=== PATIENT | male | born 1945 | race Caucasian/White ===

== ENCOUNTER 2018-04-11 19:16 | Inpatient (IN) | payer OTHER ==
[~2018-04-11] VITALS: Ht 182.9 cm; Wt 62.6 kg
--- NOTE | ~2018-04-11 | 2DMMODE ---
[facility] [address] [place] [address] 2 D/M-MODE ECHOCARDIOGRAM Name: MANJULA BRANDON Room #: 412-P [facility] IN ..#: [id number] Admission: 04/11/18 Attend Phys: Dante Renee, Discharge: Date of : 45 Date of Service: 04/12/18 1250 Report #: [id number] THIS REPORT FOR: //name// APPROVED REPORT Study performed: 04/12/2018 10:46:05 EXAM: Comprehensive 2D, Doppler, and color-flow Echocardiogram Patient Location: Echo lab Room #: [facility] Status: routine BSA: 1.82 HR: 87 bpm BP: 139/89 mmHg Rhythm: NSR Other Information Study Quality: Good Indications Pre-Op. 2D Dimensions RVDd: 36.77 mm LVEF(%): 56.70 (>50%) IVSd: 13.54 (7-11mm) LVOT Diam: 22.36 (18-24mm) LVDd: 42.29 mm PWd: 12.54 (7-11mm) Ascending Ao: 36.22 (22-36mm) LVDs: 29.85 (25-40mm) Aortic Root: 38.06 mm Arenas's LVEF: 56.70 % Volumes Left Atrial Volume (Systole) Single Plane 4CH: 36.45 mL Single Plane 2CH: 43.31 mL LA ESV Index: 24.00 mL/m2 Aortic Valve AoV Peak Ankit.: 1.12 m/s AO Peak Gr.: 5.02 mmHg LVOT Max P.32 mmHg LVOT Max V: 0.91 m/s YOSSI Vmax: 3.19 cm2 Mitral Valve E/A Ratio: 0.6 MV Decel. Time: 425.11 ms [facility] [place] [address] 2 D/M-MODE ECHOCARDIOGRAM Name: MANJULA BRANDON Room #: 412-P [facility] IN .R.#: [id number] Admission: 04/11/18 Attend Phys: Dante Renee, Discharge: Date of : 45 Date of Service: 04/12/18 1250 Report #: [id number] MV E Max Ankit.: 0.46 m/s MV A Ankit.: 0.73 m/s MV PHT: 123.28 ms IVRT: 107.27 ms Pulmonary Valve PV Peak Ankit.: 0.92 m/s PV Peak Gr.: 3.37 mmHg Pulmonary Vein P Vein S: 0.62 m/s P Vein D: 0.30 m/s P Vein S/D Ratio: 2.07 Tricuspid Valve TR Peak Ankit.: 2.56 m/s RAP Estimate: 5.00 mmHg TR Peak Gr.: 26.31 mmHg PA Pressure: 31.00 mmHg Left Ventricle The left ventricle is normal size. There is normal LV segmental wall motion. Mild concentric left ventricular hypertrophy. Left ventricular systolic function is normal. LVEF is 60-65%. Mild diastolic dysfunction is present (impaired relaxation pattern). Right Ventricle The right ventricle is normal size. The right ventricular systolic function is normal. Atria The left atrium size is normal. The right atrium size is normal. Aortic Valve The aortic valve is normal in structure. No aortic regurgitation is present. There is no aortic valvular stenosis. Mitral Valve Mitral valve leaflets are mildly thickened, probably mildly myxomatous. Mild mitral annular calcification. Mild mitral regurgitation. Tricuspid Valve The tricuspid valve is normal in structure. Mild to moderate tricuspid regurgitation. Estimated PAP is 30-35mmHg. [address] [address] 2 D/M-MODE ECHOCARDIOGRAM Name: ALEKSANDRMANJULA Room #: 412-P [facility] IN .R.#: [id number] Admission: 04/11/18 Attend Phys: Dante Renee, Discharge: Date of : 45 Date of Service: 04/12/18 1250 Report #: [id number] Pulmonic Valve The pulmonary valve is normal in structure. Mild pulmonic regurgitation. Great Vessels Aortic root is borderline dilated. The ascending aorta is normal in size. IVC is normal in size and collapses >50% with inspiration. Pericardium There is no pericardial effusion. <Conclusion> Left ventricular systolic function is normal. There is normal LV segmental wall motion. Mild concentric left ventricular hypertrophy. LVEF 60-65%. Mild diastolic dysfunction The aortic valve is normal in structure. No aortic regurgitation or stenosis Mitral valve leaflets are mildly thickened, probably mildly myxomatous. Mild mitral annular calcification. Mild mitral regurgitation Mild to moderate tricuspid regurgitation. Estimated pulmonary artery pressure of 30-35mmHg. There is no pericardial effusion. <ELECTRONICALLY SIGNED> By: Bobby Alejandre MD, FACC 04/12/18 1250 125 49 Bobby Alejandre MD, FACC /INF
--- NOTE | ~2018-04-11 | PATH ---
[facility] [address] [address] PATHOLOGY RPT PROCEDURE Name: MANJULA HEATH Room #: 412-P [facility] IN M.R.#: [id number] Admission: 04/11/18 Date of : 45 Discharge: Report #: [id number] Path Case #: [id number] [facility] Accession Number: [id number] . 01 Material submitted: . SIGMOID COLON . 01 Clinical history: . Sigmoid volvulus . 02 Diagnosis: Large intestine, sigmoid colon, laparoscopic colectomy: - Markedly congested bowel wall with reactive changes, clinical history of volvulus. - Negative for dysplasia or malignancy. - Margins of resection viable and unremarkable. - Three reactive lymph nodes. (IUV:db; 04/16/2018) LBQ/04/16/2018 . 02 Electronically signed: . Luna Oscar MD, Pathologist NPI- [id number] . 01 Gross description: . The specimen is received in formalin, labeled "Manjula Heath, sigmoid colon". Received is an unoriented segment of colon measuring 18.6 cm in length by 2.7 cm in diameter. One margin is stapled closed and the opposite margin is opened. The serosal surface is pale guido, smooth and glistening in appearance. The attached pericolic fat measures up to 3.1 cm in thickness. Opening the specimen reveals a pale guido mucosa with moderate mucosal folding. Dissection and palpation of the attached pericolic fat reveals three possible lymph nodes measuring 0.4 cm each in maximum dimensions. The specimen is submitted representatively as follows: . A1 stapled margin A2 opened margin A3-A4 field representatives director cross-sections of mucosa A5 intact possible lymph nodes. (CAA; 04/15/2018) QAC/QAC . 02 CPT . [id number] Performed at: [address] [address] PATHOLOGY RPT PROCEDURE Name: MANJULA HEATH Room #: 412-P [facility] IN [facility]#: [id number] Admission: 04/11/18 Date of : 45 Discharge: Report #: [id number] Path Case #: [id number] [address] [id number] MD Nick Ware MD Phone: [phone] Performed at: [address] [id number] MD Luna Oscar MD Phone: [phone]
--- NOTE | ~2018-04-11 | EKG ---
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1945 Requested By: Kade Spencer Order Number: [id number] MD: Bobby Alejandre Measurements Intervals [place] Rate: 77 P: 73 LA: 144 QRS: 55 QRSD: 96 T: 82 QT: 391 QTc: 443 Interpretive Statements Sinus rhythm Atrial premature complex Compared to ECG 08/28/1993 07:21:00 Atrial premature complex(es) now present Electronically Signed On 04-12-2018 16:28:19 CDT by Bobby Alejandre [email or web address] <ELECTRONICALLY SIGNED> By: Bobby Alejandre MD, [facility] 04/12/18 1628 Bobby Alejandre MD, [facility] /EPI
--- NOTE | ~2018-04-11 | O ---
[facility] [place] [address] [place] [address] OPERATIVE REPORT Name: MANJULA BRANDON Room #: 412-P [facility] IN M.R.#: [id number] Admission: 04/11/18 Attend Phys: Dante Renee MD Discharge: Date of : 45 Report #: [id number] THIS REPORT FOR: //name// CC: NANCY Renee DATE OF SERVICE: 04/13/2018 PREOPERATIVE DIAGNOSIS: Sigmoid volvulus, status post decompression. POSTOPERATIVE DIAGNOSES: Sigmoid volvulus, status post decompression. OPERATIVE PROCEDURE: Laparoscopic sigmoid colectomy. SURGEON: Jeri Scruggs MD SLEEP LAB TECHNOLOGIST: Gentry Lazaro DO ANESTHESIA: General endotracheal anesthesia. ESTIMATED BLOOD LOSS: Minimal (less than 10 mL). COMPLICATIONS: None appreciated. SPECIMENS: Sigmoid colon to pathology. INDICATIONS: The patient is a 72-year-old male who presented with severe sudden onset nausea, vomiting and abdominal pain where he was found on CT scan to have sigmoid volvulus. The patient underwent decompressive colonoscopy with placement of a rectal tube to prevent recurrent volvulus and underwent a bowel prep to good measure with having clear normal bowel movements. The bowel prep type was a Silveira prep. As the patient has significant laxity of the sigmoid colon that was the causative factor of his volvulus, indication was for sigmoid colectomy today. DESCRIPTION OF PROCEDURE: After explaining the risks, benefits and alternatives of the procedure with the patient in detail in the preoperative holding area and obtaining written consent. The patient was brought to the operating room and placed supine on the operating room table. After conducting a thorough timeout procedure, verifying correct patient and procedure, the patient was given general endotracheal anesthesia. Once adequate anesthesia was obtained, his SCDs were hooked up to pneumatic compression device and he was given a preoperative dose of antibiotics in line with the SCIP protocol. The patient's abdomen was prepped and draped in standard surgical sterile fashion after positioning him in the low lithotomy position with his legs in the Yellofin stirrups. The 5 mL of 0.5% Marcaine with epinephrine were used to anesthetize [address] [address] OPERATIVE REPORT Name: MANJULA BRANDON Room #: 412-P [facility] IN M.R.#: [id number] Admission: 04/11/18 Attend Phys: Dante Renee MD Discharge: Date of : 45 Report #: [id number] the skin in the left mid abdomen, 3 cm cephalad to the umbilicus, and 2 cm to the patient's left. A #15 bladed scalpel was used to create a small skin nicole at this location. A 5 mm Visiport was placed over 0 degree 5 mm laparoscope and was used to introduce into the abdomen through this incision site. Once intra-abdominal placement was verified visually, the obturator for the trocar and laparoscope were both removed and the abdomen was insufflated to 15 mmHg using carbon dioxide gas. The laparoscope was changed to a 5-mm 30-degree laparoscope, which was reintroduced through this trocar. The entire abdomen was evaluated to ensure no injury upon entry. There was significant laxity of the dilated sigmoid colon seen, but was no other evidence of pathology. I now placed additional trocars throughout the abdomen. A 5 mm port was placed 3 cm cephalad to the umbilicus and 3 cm to the patient's right. An additional 12 mm port was placed in the right lower quadrant. Both additional trocars were placed under direct vision. After anesthetizing the skin at each location with 5 mL of 0.5% Marcaine with epinephrine, I created appropriately sized skin nicks using #15 bladed scalpel. Laparoscope was placed into the 5 mm port in the right mid abdomen and the patient was placed in Trendelenburg with the left side elevated. I was able to sweep the bowel into the upper abdomen including the tortuous sigmoid colon. There was no evidence of overt diverticular disease nor ischemia seen. The colon was elevated and a window was made in the mesentery near the rectosigmoid juncture using the articulating EnSeal device. The Labette 60 mm stapler with a blue load was then entered and the abdomen through the 12 mm port where one blade of the stapler was passed through the window in the mesentery at the juncture of the rectosigmoid area and was clamped and fired completely transecting the bowel. I now placed a 5 mm trocar in the suprapubic location under direct vision. After anesthetizing the skin at that location with 5 mL of 0.5% Marcaine with epinephrine, I created a small skin nicole at that location as well. Laparoscopic grasper was placed through this trocar and was used to grasp the proximal staple line of the sigmoid colon that was to be resected. This allowed for elevation of the sigmoid colon and I now took down the mesentery using the articulating EnSeal device, staying along the wall of the colon transecting the mesentery proximally. At the location of the TAMIA, this appeared to be a heavily calcified TAMIA and I was able to come across this with some difficulty; however, ultimately I was able to transect it with complete hemostasis throughout. Once I arrived to my proximal transection site. The suprapubic trocar site was elongated to 3 cm transversely with a #10 blade scalpel. Electrocautery was used to carry this down through skin and subcutaneous tissues until I arrived upon the abdominal wall, which was then opened at the fascial level vertically. The wound protector aspect of the Cipriano O retractor was then placed into the wound over the laparoscopic grasper, which was then used to deliver the colon through the abdominal wall in a sterile fashion. The proximal transection site was identified and the auto pursestring suture device was used to transect the bowel at this location and the excess bowel was removed with curved Gregory scissors and passed off the field with the open end being proximal. We now sized to the colon showing the appropriate size EEA to be a 29 EEA. The anvil for the 29 EEA was placed in the open end of [address] [address] OPERATIVE REPORT Name: MANJULA BRANDON Room #: 412-P [facility] IN [facility].#: [id number] Admission: 04/11/18 Attend Phys: Dante Renee MD Discharge: Date of : 45 Report #: [id number] bowel and the pursestring suture from the auto pursestring device was tied down around the post of the anvil. This was placed back in the abdomen and the Cipriano cap was placed on the wound protector. The abdomen was reinsufflated. We now dilated the rectal stump again up to 29 EEA and ultimately we were able to deliver the EEA stapler to the end of the staple line where the spike was delivered through the center most portion of the staple line. I now mated the spike to the anvil and ratcheted the stapler down in standard fashion, ensuring no twisting to the colon. There was no mesentery in between the ends of bowel and the stapler was fired and removed. The anastomotic donuts were beefy and circumferential. There was no tension on the anastomosis, as we had left approximately 4 cm overlap to ensure a tension-free anastomosis. I now performed a leak test. The sigmoid colon was clamped proximal to the anastomosis and normal saline was instilled into the pelvis. The rigid proctoscope was placed in the anus and we were able to fully insufflate across the anastomosis where we had no evidence of bubbling. We had good tidaling with the proctoscope, but again 3 leak tests were performed, all negative. The pelvis was fully irrigated and suctioned dry. There was no bleeding evident. I did place Lisseth at the mesentery for assistance with long-term hemostasis. One final evaluation of the intra-abdominal domain showed no further evidence of pathology. I closed the 12 mm fascial incision using 0 PDS suture on the Crescencio-Lynn suture passer device under direct vision. This was tied down under direct vision. The abdomen was fully desufflated. The Cipriano wound retractor was removed. I then closed the fascia using #1 PDS in standard running fashion vertically and then proceeded to close all skin incisions using 4-0 Monocryl in standard subcuticular fashion. Dermabond glue was then applied to all skin wounds. At the end of the procedure, all instrument, needle and sponge counts were correct. The patient tolerated the procedure without incident, was awakened in the operating room and transitioned to the recovery room in stable condition with no apparent complications. <ELECTRONICALLY SIGNED> By: Jeri Scruggs MD, FACS 04/15/18 0914 [id number] Jeri Scruggs MD, FACS /nt
--- NOTE | ~2018-04-11 | HC ---
[facility] [place] [address] [place] [address] CONSULTATION Name: MANJULA BRANDON Room #: 412-P [facility] IN .R.#: [id number] Admission: 04/11/18 Attend Phys: Dante Renee MD Discharge: Date of : 45 Report #: [id number] THIS REPORT FOR: //name// CC: RAF Renee MD Patient's Inpatient Chart Kade Spencer MD DATE OF SERVICE: 04/11/2018 GASTROENTEROLOGY CONSULTATION This is Dr. Mariola Raya recording. The patient of Dr. Raf Alcantar and Dr. Dante Renee. CHIEF COMPLAINT: This is a very pleasant 72-year-old white male with a chief complaint of increasing abdominal distention, nausea and vomiting with any oral intake, inability to pass stools and flatus. The patient underwent a CT scan of the abdomen to evaluate these worsening symptoms that have been occurring over the last several days and it reveals what looks like a possible sigmoid volvulus with a lot of stool and colonic distention above the volvulus. The colon below the volvulus is decompressed. The patient denies any pain at this time, but did have quite a bit of pain yesterday. His lactate is slightly elevated at 2.5 and we are concerned that he might be experiencing intestinal ischemia because of this volvulus. PAST MEDICAL HISTORY: Significant for diabetes mellitus. He has an elevated glucose. He has hyponatremia, he has had this for the last 10 years and he treats it with fluid restriction and sodium bicarbonate taken daily. He also has a right inguinal hernia. PAST SURGICAL HISTORY: Significant for cataract extractions and lens implants. ALLERGIES: LISINOPRIL. MEDICATIONS: Include metformin, bicarbonate and aspirin 81 mg. SOCIAL HISTORY: He does not smoke. He drinks an occasional beer. FAMILY HISTORY: Negative for colon polyps, colon cancer, Crohn's disease, and ulcerative colitis. His daughter does have celiac disease. REVIEW OF SYSTEMS: He denies any dysphagia or odynophagia. He does have gastroesophageal reflux. He has no history of a hiatal hernia or peptic ulcer [facility] [address] [place] [address] CONSULTATION Name: MANJULA BRANDON Room #: 412-P [facility]#: [id number] Admission: 04/11/18 Attend Phys: Dante Renee MD Discharge: Date of : 45 Report #: [id number] disease. He says in general, his weight has been stable. Appetite is usually good, although it has not been in the last several days. He denies any hematemesis, hematochezia or melena. He has not passed any stool or flatus over the last couple of days. He had a normal colonoscopy in 2011 or 2013. He says that he does have quite a bit of diarrhea every time he drinks coffee. He denies constipation. He denies any abdominal pain at this time. He denies any history of jaundice, hepatitis, cholelithiasis, cholecystitis or pancreatitis. PHYSICAL EXAMINATION: GENERAL: Reveals a well-developed, well-nourished 72-year-old white male in no apparent distress at the time of the examination, he is awake, alert, oriented x 4, cooperative, and pleasant to converse with. HEENT: He is normocephalic and atraumatic and anicteric. HEART: Rate and rhythm are regular with a normal S1 and S2. LUNGS: Clear bilaterally. ABDOMEN: Distended and taut. Bowel sounds are present. There is no palpable organomegaly or mass. There is mild tenderness in the lower quadrants, but no rebound or guarding. The abdomen is tympanic to percussion. EXTREMITIES: Warm and dry. No peripheral cyanosis, clubbing or edema noted. NEUROLOGIC: He appears grossly intact without lateralizing signs, though I did not test him extensively neurologically. IMPRESSION: 1. Sigmoid volvulus suspected with elevated lactate level. 2. Diabetes mellitus. 3. 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 4. Gastroesophageal reflux. 5. Frequent diarrhea. It sounds like irritable bowel syndrome. His daughter does have a history of celiac disease, however. RECOMMENDATIONS: My recommendations are to proceed with decompressive colonoscopy with decompression tube placement. We will avoid hypotonic IV solutions to prevent worsening of hyponatremia. The risks of bleeding, perforation, infection, complications of sedation and the possibility I could miss something have been explained to the patient and he has indicated his consent to proceed. Thank you very much once again for allowing me to participate in his care. <ELECTRONICALLY SIGNED> By: Mariola Raya DO 04/12/18 0051 [id number] Mariola Raya DO /nt
[2018-04-11 19:21] VITALS: BP 160/109
[2018-04-11] MEDS ORDERED: METFORMIN HCL500 MG PO (19:25)
[2018-04-11 19:47] LABS: ABSOLUTE NEUTROPHILS 5.6 thou/uL (1.4-8.2); BASOPHILS 0.4 % (0.0-2.0); EOSINOPHILS 0.8 % (0.0-3.0); HEMOGLOBIN 13.8 gm/dL (14.0-18.0); LYMPHOCYTES 18.1 % (24.0-44.0); MCH 29.2 pg (26.0-34.0); MCHC 33.6 g/dL (28.0-37.0); MCV 87.2 fL (80.0-100.0); MONOCYTES 7.8 % (1.0-8.0); PLATELET COUNT 275 thou/uL (150-400); POLYS 72.9 % (36.0-66.0); RBC 4.71 mil/uL (4.50-6.00); RDW 13.4 % (10.5-14.5); WBC 7.7 thou/uL (4.0-11.0)
[2018-04-11 20:00] LABS: CALCIUM 9.9 mg/dL (8.5-10.1); CREATININE 0.9 mg/dL (0.7-1.3); POTASSIUM 4.6 mmol/L (3.5-5.1)
[2018-04-11 20:04] LABS: ALBUMIN 4.1 g/dL (3.4-5.0); DIRECT BILIRUBIN 0.2 mg/dL (<0.1-0.3); TOTAL BILIRUBIN 0.9 mg/dL (<0.1-1.0); TOTAL PROTEIN 8.5 g/dL (6.4-8.2)
[2018-04-11 21:34] LABS: URINE BILIRUBIN NEGATIVE (Negative); URINE BLOOD NEGATIVE (Negative); URINE CLARITY CLEAR; URINE COLOR YELLOW; URINE GLUCOSE-RANDOM* NEGATIVE (Negative); URINE KETONES TRACE (Negative); URINE LEUKOCYTES NEGATIVE (Negative); URINE NITRITE NEGATIVE (Negative); URINE PROTEIN (DIPSTICK) TRACE (Negative); URINE SPECIFIC GRAVITY 1.015 (1.005-1.035); URINE UROBILINOGEN 0.2 E.U./dl (0.2-1.0)
[2018-04-11 21:40] VITALS: BP 161/104
[2018-04-11 22:47] VITALS: BP 159/108
[2018-04-12] VITALS (8 sets, daily range): BP systolic 116–154; BP diastolic 75–92
[2018-04-12 09:22] LABS: ABSOLUTE NEUTROPHILS 3.9 thou/uL (1.4-8.2); BASOPHILS 0.4 % (0.0-2.0); EOSINOPHILS 2.4 % (0.0-3.0); HEMATOCRIT 37.2 % (42.0-52.0); HEMOGLOBIN 12.8 gm/dL (14.0-18.0); LYMPHOCYTES 22.6 % (24.0-44.0); MCHC 34.4 g/dL (28.0-37.0); MCV 87.1 fL (80.0-100.0); MONOCYTES 10.6 % (1.0-8.0); PLATELET COUNT 226 thou/uL (150-400); RBC 4.27 mil/uL (4.50-6.00); RDW 13.3 % (10.5-14.5); WBC 6.1 thou/uL (4.0-11.0)
[2018-04-12 09:29] LABS: CALCIUM 9.4 mg/dL (8.5-10.1); CREATININE 0.7 mg/dL (0.7-1.3)
[2018-04-12 09:33] LABS: PROTIME 10.4 Seconds (9.3-11.4)
[2018-04-13 08:49] VITALS: BP 142/83
[2018-04-13 11:42] VITALS: BP 142/75
[2018-04-13 11:45] VITALS: BP 135/72
[2018-04-13 12:00] VITALS: BP 138/72
[2018-04-13 14:21] VITALS: BP 123/72
[2018-04-13 15:03] LABS: HEMATOCRIT 38.2 % (42.0-52.0); HEMOGLOBIN 12.6 gm/dL (14.0-18.0); MCHC 32.9 g/dL (28.0-37.0); MCV 88.1 fL (80.0-100.0); RBC 4.34 mil/uL (4.50-6.00); RDW 13.8 % (10.5-14.5); WBC 10.5 thou/uL (4.0-11.0)
[2018-04-13 15:10] LABS: ALBUMIN 3.2 g/dL (3.4-5.0); CALCIUM 8.2 mg/dL (8.5-10.1); CREATININE 1.2 mg/dL (0.7-1.3); MAGNESIUM 1.8 mg/dL (1.8-2.4); POTASSIUM 4.2 mmol/L (3.5-5.1); TOTAL BILIRUBIN 0.6 mg/dL (<0.1-1.0); TOTAL PROTEIN 6.9 g/dL (6.4-8.2)
[2018-04-13 20:13] VITALS: BP 125/70
[2018-04-14 03:53] VITALS: BP 119/63
[2018-04-14 07:52] VITALS: BP 118/76
[2018-04-14 11:34] LABS: CALCIUM 8.1 mg/dL (8.5-10.1); CREATININE 0.9 mg/dL (0.7-1.3); POTASSIUM 4.9 mmol/L (3.5-5.1)
[2018-04-14 17:37] VITALS: BP 124/77
[2018-04-14 20:00] VITALS: BP 121/71
[2018-04-15 06:45] LABS: HEMATOCRIT 29.9 % (42.0-52.0); HEMOGLOBIN 10.2 gm/dL (14.0-18.0); MCH 29.7 pg (26.0-34.0); MCV 87.4 fL (80.0-100.0); RBC 3.43 mil/uL (4.50-6.00); RDW 13.8 % (10.5-14.5); WBC 6.3 thou/uL (4.0-11.0)
[2018-04-15 06:58] LABS: CALCIUM 8.2 mg/dL (8.5-10.1); CREATININE 0.7 mg/dL (0.7-1.3); MAGNESIUM 1.7 mg/dL (1.8-2.4); POTASSIUM 4.7 mmol/L (3.5-5.1)
[2018-04-15 07:22] VITALS: BP 145/81
[2018-04-15 20:02] VITALS: BP 140/87
[2018-04-16 03:06] VITALS: BP 158/77
[2018-04-16 04:30] LABS: CALCIUM 8.4 mg/dL (8.5-10.1); CREATININE 0.5 mg/dL (0.7-1.3); POTASSIUM 4.8 mmol/L (3.5-5.1)
[2018-04-16 07:16] VITALS: BP 155/89
[2018-04-16 15:36] VITALS: BP 135/78
[2018-04-16 20:00] VITALS: BP 150/82
[2018-04-17 04:00] VITALS: BP 148/90
[2018-04-17 05:40] LABS: CALCIUM 8.7 mg/dL (8.5-10.1); CREATININE 0.6 mg/dL (0.7-1.3); MAGNESIUM 1.5 mg/dL (1.8-2.4); POTASSIUM 5.5 mmol/L (3.5-5.1)
[2018-04-17 07:36] VITALS: BP 155/87
[2018-04-17 10:33] VITALS: BP 155/87
[2018-04-17 12:07] VITALS: BP 155/87
[2018-04-17] MEDS ORDERED: MIRALAX17 GM PO (13:27)
[2018-04-17] MEDS ORDERED: COLACE 100 MG100 MG PO (13:27)
[2018-04-17] MEDS ORDERED: HYDROCODONE-AP1 EAC6 PO ×2 (13:27→14:20)
[2018-04-17 13:45] VITALS: BP 155/87
== END 2018-04-17 14:48 | disposition home health service (06) | DRG 329 ==
LOC: ER 19:16 → 4N 21:16 → EROBS 21:16 → 4N 21:46 → ENTRNSPT 04-12 14:04 → EDTRNSPTSTS 04-12 14:06 → SICU 04-12 14:31 → 4N 04-13 10:50 → ENTRNSPT 04-17 14:40 → EDTRNSPTSTS 04-17 14:41 → 4N 04-17 14:48
PROVIDERS: Emergency Medicine; Internal Medicine; Surgery
PROC: 0D9N80Z Drainage of Sigmoid Colon with Drainage Device, Via Natural or Artificial Opening Endoscopic (ICD-10-PCS; principal; 2018-04-12)
PROC: 0DTN4ZZ Resection of Sigmoid Colon, Percutaneous Endoscopic Approach (ICD-10-PCS; 2018-04-13)
DX: K56.2 Volvulus (principal); E43 Unspecified severe protein-calorie malnutrition; E87.1 Hypo-osmolality and hyponatremia; E87.2 Acidosis; E11.9 Type 2 diabetes mellitus without complications; Z96.1 Presence of intraocular lens; K21.9 Gastro-esophageal reflux disease without esophagitis; K40.90 Unilateral inguinal hernia, without obstruction or gangrene, not specified as recurrent; I10 Essential (primary) hypertension; E86.0 Dehydration; Z79.899 Other long term (current) drug therapy; Z88.8 Allergy status to other drugs, medicaments and biological substances; Z98.49 Cataract extraction status, unspecified eye; Z79.82 Long term (current) use of aspirin
CPT/HCPCS: 10091; 10790; 15002; 50101; 50249; 50290; 50386; 50455; 50525; 50555; 50558; 50740; 50804; 50900; 51398; 51489; 52265; 52287; 53307; 54022; 54118; 56462; 56525; 56526; 56753; 57092; 62110; 62900; 70005

== ENCOUNTER 2018-04-20 18:53 | Inpatient (IN) | payer OTHER ==
[~2018-04-20] VITALS: Ht 177.8 cm; Wt 59.4 kg
--- NOTE | ~2018-04-20 | HC ---
[facility] [place] [address] CONSULTATION Name: MANJULA BRANDON Room #: 354-P [facility] IN ..#: [id number] Admission: 04/20/18 Attend Phys: Armaan Freeman MD Discharge: Date of : 45 Report #: [id number] THIS REPORT FOR: //name// CC: Armaan Spencer DATE OF SERVICE: 04/21/2018 HISTORY OF PRESENT ILLNESS: This is a 72-year-old male patient who was evaluated by me for an episode of aphasia. I talked to the patient's and I reviewed the patient's records in the computer and I talked to the surgeon. This patient apparently had an episode of speech difficulty in 2018. None of the records are available, but he was at [facility] and they did multiple workups on him. Apparently, the workup was unremarkable except for hyponatremia. They are treating it with extra sodium and his sodium stays reasonably well now. It looks like this episode of aphasia was moderately severe and from the record, it looks like it may have been associated with some postural hypotension and happened when he stood up. He did have some hyponatremia, but that is pretty much his baseline. Does not look like he had much focal deficit with it. REVIEW OF SYSTEMS: A 14-point review of system was carried out in this patient either from the chart or from the record. He had a recent surgery. He had a Neurology evaluation about [address] Russell[address] It is not certain what prompted that evaluation, but it looks like he did an MRI of the brain, which showed a question of normal pressure hydrocephalus and neurosurgeon, Dr. Hughes who did not think any intervention is needed. I am not even certain the diagnosis of normal pressure hydrocephalus was established and this is most of the time his subjective diagnosis. The patient did not have ataxia, urinary incontinence or any more cognitive decline associated with increased ventricles. In fact, he has been exercising and walking around couple miles a day. He is losing some muscle mass according to the . He does have some ileus. From the record, it looks like this patient has renal problems, dehydration, abdominal pain, postoperative ileus, volvulus of sigmoid colon. He does have a prior history of diabetes. This was his relevant 14-point review of system, which was carried out. PAST MEDICAL HISTORY: Positive for hyponatremia. FAMILY HISTORY: Negative for early age stroke. SOCIAL HISTORY: The patient is . He does not drink any alcohol. He does not smoke. PHYSICAL EXAMINATION: Indicate he is alert. He is responsive. He can follow [address] [address] CONSULTATION Name: ALEKSANDRMANJULA Brand Room #: 354-P [facility] IN ..#: [id number] Admission: 04/20/18 Attend Phys: Armaan Freeman MD Discharge: Date of : 45 Report #: [id number] simple command. He got the month right, but did not get the date exactly right. He can name the president and he knows what hospital he is in. As I understand, his speech and concentration and memory is at his baseline. Cranial nerve examination 2-12 is unremarkable. Strength may be somewhat diminished in generalized fashion, but no focal abnormality. He has a good position sense. Reflexes are symmetrical. Tone is symmetrical. There is no cerebellar sign. There is no meningeal sign. He is a thinly built individual who does not have any dysmorphic features of eyes, ears and face. His vision and hearing looks adequate. He has no thyroid mass. His cardiac examination was mostly unremarkable. According to the family, he had an echo recently, which was also unremarkable. There is no respiratory difficulty or rhonchi on either side. His pulses are somewhat difficult to feel. He has no edema, cyanosis or jaundice. Blood pressure is 142/82, respirations 17, pulse is 83, temperature is 98.2. LABORATORY DATA: Indicates a white count of 10.5. His GFR is 111. His sodium is 129. He did have a CT scan of the head, which showed no acute abnormality. His MRI is scheduled. IMPRESSION: An episode of aphasia, which may be related to his hypotension if he had that or his hyponatremia. He does not have any clinical signs for normal pressure hydrocephalus, although the diagnosis has been considered. His MRI has been scheduled and I will suggest doing an MRA at the same time. He has been seen by director trial in the past, but I think they need to address the question of further workup and management of hyponatremia. RECOMMENDATIONS: 1. I will suggest doing an MRA of the head. 2. Main management is going to be the management of his blood pressure and his hyponatremia. 3. I will check a TSH and vitamin B12. 4. Consideration should be given to put him on antiplatelet therapy as well as checking his lipid profile. This is not the time to do it because of his recent GI problems, but sometime along the line, that should be considered as an outpatient. He can follow up with Dr. Russell, his neurologist as an outpatient if this workup is okay. Thank you very much for this referral. By: [id number] Narciso Alberto MD /nt
[~2018-04-20 18:53] MED LIST: COLACE 100 MG100 MG PO; HYDROCODONE-AP1 EAC6 PO; METFORMIN HCL500 MG PO; MIRALAX17 GM PO
[2018-04-20 18:54] VITALS: BP 147/85
[2018-04-20 19:21] LABS: ABSOLUTE NEUTROPHILS 10.3 thou/uL (1.4-8.2); BASOPHILS 0.6 % (0.0-2.0); EOSINOPHILS 0.9 % (0.0-3.0); HEMATOCRIT 33.7 % (42.0-52.0); HEMOGLOBIN 11.4 gm/dL (14.0-18.0); LYMPHOCYTES 8.9 % (24.0-44.0); MCH 28.9 pg (26.0-34.0); MCHC 33.8 g/dL (28.0-37.0); MCV 85.6 fL (80.0-100.0); MONOCYTES 10.9 % (1.0-8.0); PLATELET COUNT 463 thou/uL (150-400); POLYS 78.7 % (36.0-66.0); RBC 3.94 mil/uL (4.50-6.00); RDW 14.1 % (10.5-14.5); WBC 13.1 thou/uL (4.0-11.0)
[2018-04-20 20:52] LABS: URINE BILIRUBIN NEGATIVE (Negative); URINE BLOOD NEGATIVE (Negative); URINE CLARITY CLEAR; URINE COLOR YELLOW; URINE GLUCOSE-RANDOM* NEGATIVE (Negative); URINE KETONES NEGATIVE (Negative); URINE LEUKOCYTES-REFLEX NEGATIVE (Negative); URINE NITRITE-REFLEX NEGATIVE (Negative); URINE PROTEIN (DIPSTICK) NEGATIVE (Negative); URINE UROBILINOGEN 0.2 E.U./dl (0.2-1.0)
[2018-04-20 21:00] LABS: CALCIUM 8.5 mg/dL (8.5-10.1); CREATININE 0.8 mg/dL (0.7-1.3); POTASSIUM 5.2 mmol/L (3.5-5.1)
[2018-04-20 21:06] LABS: ALBUMIN 2.5 g/dL (3.4-5.0); DIRECT BILIRUBIN 0.3 mg/dL (<0.1-0.3); MAGNESIUM 1.3 mg/dL (1.8-2.4); TOTAL BILIRUBIN 1.1 mg/dL (<0.1-1.0); TOTAL PROTEIN 6.4 g/dL (6.4-8.2)
[2018-04-20 22:05] VITALS: BP 142/92
[2018-04-20 23:35] VITALS: BP 146/92
[2018-04-21 00:35] VITALS: BP 146/89
[2018-04-21 03:09] VITALS: BP 133/86
[2018-04-21 05:55] LABS: HEMATOCRIT 29.5 % (42.0-52.0); MCH 29.5 pg (26.0-34.0); MCHC 34.1 g/dL (28.0-37.0); MCV 86.6 fL (80.0-100.0); RBC 3.4 mil/uL (4.50-6.00); RDW 13.4 % (10.5-14.5); WBC 10.5 thou/uL (4.0-11.0)
[2018-04-21 06:05] LABS: CALCIUM 8.4 mg/dL (8.5-10.1); CREATININE 0.7 mg/dL (0.7-1.3); POTASSIUM 4.7 mmol/L (3.5-5.1)
[2018-04-21 07:54] VITALS: BP 142/82
[2018-04-21 11:35] VITALS: BP 122/85
[2018-04-21 12:20] LABS: TSH 1.269 uIU/mL (0.358-3.740)
[2018-04-21 16:02] VITALS: BP 144/92
[2018-04-21 19:47] VITALS: BP 155/93
[2018-04-22 03:54] VITALS: BP 154/96
[2018-04-22 05:55] LABS: HEMATOCRIT 33.2 % (42.0-52.0); HEMOGLOBIN 11.1 gm/dL (14.0-18.0); MCH 29.2 pg (26.0-34.0); MCHC 33.3 g/dL (28.0-37.0); MCV 87.6 fL (80.0-100.0); RBC 3.79 mil/uL (4.50-6.00); RDW 13.6 % (10.5-14.5); WBC 10.1 thou/uL (4.0-11.0)
[2018-04-22 06:02] LABS: PLATELET COUNT 489 thou/uL (150-400)
[2018-04-22 06:07] LABS: CALCIUM 8.7 mg/dL (8.5-10.1); CREATININE 0.7 mg/dL (0.7-1.3); POTASSIUM 4.7 mmol/L (3.5-5.1)
[2018-04-22 08:08] VITALS: BP 156/93
[2018-04-22 08:15] LABS: ABSOLUTE NEUTROPHILS 8.5 thou/uL (1.4-8.2); PLATELET ESTIMATE NORMAL
[2018-04-22 11:21] VITALS: BP 133/87
[2018-04-22 15:27] VITALS: BP 154/96
[2018-04-22 19:47] VITALS: BP 145/87
[2018-04-23 04:41] LABS: ABSOLUTE NEUTROPHILS 11.3 thou/uL (1.4-8.2); BASOPHILS 0.1 % (0.0-2.0); EOSINOPHILS 0.3 % (0.0-3.0); HEMATOCRIT 31.4 % (42.0-52.0); HEMOGLOBIN 10.3 gm/dL (14.0-18.0); LYMPHOCYTES 6.5 % (24.0-44.0); MCH 28.8 pg (26.0-34.0); MCHC 32.8 g/dL (28.0-37.0); MCV 87.8 fL (80.0-100.0); MONOCYTES 9.4 % (1.0-8.0); PLATELET COUNT 500 thou/uL (150-400); POLYS 83.7 % (36.0-66.0); RBC 3.58 mil/uL (4.50-6.00); RDW 13.7 % (10.5-14.5); WBC 13.5 thou/uL (4.0-11.0)
[2018-04-23 04:45] LABS: CALCIUM 8.4 mg/dL (8.5-10.1); CREATININE 0.8 mg/dL (0.7-1.3); POTASSIUM 4.7 mmol/L (3.5-5.1)
[2018-04-23 06:16] VITALS: BP 142/94
[2018-04-23 08:05] VITALS: BP 167/106
[2018-04-23 11:43] VITALS: BP 161/97
[2018-04-23 17:47] VITALS: BP 152/89
[2018-04-23 19:35] VITALS: BP 146/97
[2018-04-24 00:05] VITALS: BP 134/87
[2018-04-24 04:35] VITALS: BP 147/99
[2018-04-24 05:17] LABS: HEMATOCRIT 28.9 % (42.0-52.0); HEMOGLOBIN 9.6 gm/dL (14.0-18.0); MCH 29.2 pg (26.0-34.0); MCHC 33.3 g/dL (28.0-37.0); MCV 87.7 fL (80.0-100.0); RBC 3.3 mil/uL (4.50-6.00); RDW 13.7 % (10.5-14.5); WBC 9.4 thou/uL (4.0-11.0)
[2018-04-24 05:26] LABS: CALCIUM 8.1 mg/dL (8.5-10.1); CREATININE 0.6 mg/dL (0.7-1.3); POTASSIUM 4.4 mmol/L (3.5-5.1)
[2018-04-24 09:05] VITALS: BP 131/88
[2018-04-24 12:14] VITALS: BP 147/100
[2018-04-24 16:00] VITALS: BP 149/99
[2018-04-24 19:35] VITALS: BP 142/92
[2018-04-25] VITALS (9 sets, daily range): BP systolic 132–173; BP diastolic 90–111
[2018-04-26 03:02] VITALS: BP 136/88
[2018-04-26 05:21] LABS: ABSOLUTE NEUTROPHILS 5.4 thou/uL (1.4-8.2); EOSINOPHILS 1.6 % (0.0-3.0); HEMATOCRIT 30.4 % (42.0-52.0); HEMOGLOBIN 10.5 gm/dL (14.0-18.0); LYMPHOCYTES 16.4 % (24.0-44.0); MCH 29.1 pg (26.0-34.0); MCHC 34.3 g/dL (28.0-37.0); MCV 84.9 fL (80.0-100.0); MONOCYTES 10.7 % (1.0-8.0); PLATELET COUNT 499 thou/uL (150-400); POLYS 70.3 % (36.0-66.0); RBC 3.59 mil/uL (4.50-6.00); RDW 13.6 % (10.5-14.5); WBC 7.6 thou/uL (4.0-11.0)
[2018-04-26 05:39] LABS: CALCIUM 8.4 mg/dL (8.5-10.1); CREATININE 0.6 mg/dL (0.7-1.3)
[2018-04-26 07:33] VITALS: BP 151/90
[2018-04-26 13:36] VITALS: BP 138/81
[2018-04-26 15:40] VITALS: BP 97/40
[2018-04-26 20:15] VITALS: BP 151/99
[2018-04-27 04:17] VITALS: BP 152/100
[2018-04-27 08:12] VITALS: BP 146/78
[2018-04-27 11:47] VITALS: BP 147/94
[2018-04-27 16:22] VITALS: BP 146/98
[2018-04-27 19:29] VITALS: BP 143/94
[2018-04-28 04:00] VITALS: BP 136/91
[2018-04-28 07:55] VITALS: BP 134/86
[2018-04-28 11:23] VITALS: BP 128/88
[2018-04-28 12:50] VITALS: BP 128/88
[2018-04-28 13:00] VITALS: BP 128/88
== END 2018-04-28 13:20 | disposition home or self-care (01) | DRG 356 ==
LOC: ER 18:53 → EROBS 21:40 → ER 21:40 → 3W 21:40
PROVIDERS: Emergency Medicine; Hospitalist; Nurse Practitioner Family; Psychiatry & Neurology Neuromuscular Medicine; Surgery
PROC: 0D9670Z Drainage of Stomach with Drainage Device, Via Natural or Artificial Opening (ICD-10-PCS; principal; 2018-04-24)
PROC: 0W9J3ZX Drainage of Pelvic Cavity, Percutaneous Approach, Diagnostic (ICD-10-PCS; 2018-04-25)
DX: K56.600 Partial intestinal obstruction, unspecified as to cause (principal); E43 Unspecified severe protein-calorie malnutrition; K65.1 Peritoneal abscess; E87.1 Hypo-osmolality and hyponatremia; R47.01 Aphasia; E87.2 Acidosis; K86.2 Cyst of pancreas; K40.30 Unilateral inguinal hernia, with obstruction, without gangrene, not specified as recurrent; Z68.1 Body mass index [BMI] 19.9 or less, adult; K56.7 Ileus, unspecified; E11.9 Type 2 diabetes mellitus without complications; K21.9 Gastro-esophageal reflux disease without esophagitis; I10 Essential (primary) hypertension; E86.0 Dehydration; E83.42 Hypomagnesemia; E87.5 Hyperkalemia; R13.10 Dysphagia, unspecified; K80.20 Calculus of gallbladder without cholecystitis without obstruction; Z88.8 Allergy status to other drugs, medicaments and biological substances; Z90.49 Acquired absence of other specified parts of digestive tract; Z79.899 Other long term (current) drug therapy; Z98.49 Cataract extraction status, unspecified eye
CPT/HCPCS: 10879

== ENCOUNTER 2020-04-19 21:54 | Emergency (ER) | payer OTHER ==
[~2020-04-19] VITALS: Ht 182.9 cm; Wt 63.5 kg
[2020-04-19 21:57] VITALS: BP 139/94
== END 2020-04-20 00:14 | disposition home or self-care (01) ==
LOC: ER 21:54
DX: S61.011A Laceration without foreign body of right thumb without damage to nail, initial encounter (principal); E11.9 Type 2 diabetes mellitus without complications; K21.9 Gastro-esophageal reflux disease without esophagitis; Z79.899 Other long term (current) drug therapy; Z88.8 Allergy status to other drugs, medicaments and biological substances; W27.8XXA Contact with other nonpowered hand tool, initial encounter; Y93.89 Activity, other specified; Y92.89 Other specified places as the place of occurrence of the external cause; Y99.8 Other external cause status